=== PATIENT | male | born 1955 | race Caucasian/White ===

== ENCOUNTER 2016-11-16 22:05 | Emergency (ER) | payer BC ==
[~2016-11-16] VITALS: Ht 177.8 cm; Wt 62.1 kg
[2016-11-16 22:10] VITALS: TEMP 36.5; Ht 177.8 cm; Wt 62.1 kg
--- NOTE | 2016-11-16 22:44 | DIAGNOSTIC IMAGING REPORT ---
RIGHT FIFTH FINGER 3 VIEWS CLINICAL HISTORY: Fifth finger injury. FINDINGS: 3 views of the right fifth finger are obtained. No prior studies are available for comparison at the time of dictation. The skeletal structures are well mineralized. No fracture is seen. The fifth metacarpophalangeal and interphalangeal joints are well-maintained. Mild soft tissue swelling is suggested. IMPRESSION: There is no radiographic evidence of right fifth finger fracture. Electronically signed by: Mitchell Samaniego M.D. 11/16/2016 10:42 PM Dictated Date/Time: 11/16/2016 10:41 PM
[2016-11-16 22:56] VITALS: BP 139/97; PULSE 67; O2SAT 97
--- NOTE | 2016-11-17 14:45 | EMERGENCY ROOM VISIT NOTE ---
ED Visit Note First contact with patient: 22:48 Chief Complaint: Right little finger pain. History of Present Illness: Mr. Jo is a 60-year-old white male who ambulates into the ED accompanied by female friend complaining of right little finger pain over the PIP joint and the middle and proximal phalanxes. Patient reports approximately 20 minutes before he arrived in the emergency department a window came down and struck his little finger. He reports since that time he has had a throbbing pain throughout the little finger. He rates this discomfort 2/10. Pain is nonradiating. The pain worsens with palpation and flexion and extension of the PIP and DIP joints. He has not identified any alleviating factors related to the pain. He has not taken any medications for pain prior to arrival at the hospital. Associated with his pain he has noted early bruising and swelling around the PIP joint and over the proximal phalanxes he has noted a small tissue wound. She denies other hand pain, other finger pain, little finger weakness/numbness/ tingling. Review of Systems: As noted above in history of present illness. Past Medical History: Patient denies. Current Medications: Patient denies. Allergies to Medications: Patient denies. Social History: Patient is currently employed; he lives with his and feels safe in his home environment; he denies tobacco use. Tetanus Immunization Status: Patient reports up-to-date. Physical Examination: Vital Signs: Date Time Temp Pulse Resp B/P (MAP) Pulse Ox O2 Delivery O2 Flow Rate FiO2 11/16/16 22:56 67 18 139/97 97 11/16/16 22:10 36.5 59 18 150/97 97 Room Air GENERAL: 60-year-old male in mild distress due to pain, nontoxic-appearing, afebrile and hemodynamically stable. NEUROLOGICAL: Awake, alert and oriented to person, place and time. Answering questions appropriately and following commands. SKIN: Warm, dry and pink. Right Little Finger: Patient has a small 1-2 mm superficial laceration on the posterior aspect of the little finger on the proximal phalange. No active bleeding. RIGHT HAND: Please note soft tissue above in SKIN. No gross bony deformity. Tenderness and ecchymosis over the posterior aspect of the little finger around his small superficial laceration. There is also moderate swelling over the PIP joint and middle phalanx. I do not appreciate any bony deformity. No tenderness over the fifth MCP or DIP. There was moderate tenderness over the PIP without bony deformity or crepitus. Do not appreciate ligamentous laxity at the MCP, PIP or DIP joint. Throughout the finger the skin was warm and pink and capillary refill is brisk. He was able to distinguish light sensations through all dermatomes. ED Course: Patient is assessed as noted above. Patient's medication list was reviewed. Right Hand X-Rays: Were read by myself and the radiologist showing no acute fractures or dislocations. Patient was offered pain medications and refused. Patient's superficial laceration was cleansed with antibacterial soap and water and covered with a bacitracin dressing. Then the entire little finger was placed in a metal finger splint. Patient was educated about today's findings and instructed on his treatment plan ; he verbalizes understanding and agreement with this plan. Clinical Impression: Right Little finger contusion. Disposition: Patient discharged home in stable condition accompanied by his ; prior to departure he was reassessed and subjectively reported he was feeling better. Plan: Comfort measures, wound care and signs of infection were discussed with the patient. Patient was encouraged to follow-up with his PCP or return to the ED for any signs of infection, worsening pain, finger weakness/numbness/tingling or any new /concerning symptoms.
== END 2016-11-16 22:59 | disposition home or self-care (01) ==
LOC: C.EDB 22:06 → C.EDD 22:59
DX: S60.051A Contusion of right little finger without damage to nail, initial encounter (principal); S61.216A Laceration without foreign body of right little finger without damage to nail, initial encounter; W20.8XXA Other cause of strike by thrown, projected or falling object, initial encounter